=== PATIENT | female | born 1970 | race American Indian/Alaskan Native ===

== ENCOUNTER 2016-11-08 14:57 | Emergency (ER) | payer OTHER ==
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
[2016-11-08 16:21] LABS: Basophils % (Auto) 0.7 % (0.0-1.8); Eosinophils % (Auto) 0.4 % (0.0-4.3); Hematocrit 33.7 % (30.3-42.9); Hemoglobin 10.8 gm/dl (10.1-14.3); Mean Corpuscular HGB Conc 32 % (30-34); Mean Corpuscular Volume 75 fl (79-97); Platelet Count 265 K/mm3 (140-440); Red Blood Count 4.47 M/mm3 (3.65-5.03); Red Cell Distribution Width 18.5 % (13.2-15.2)
[2016-11-08 16:22] LABS: Mean Corpuscular Hemoglobin 24 pg (28-32)
[2016-11-08 16:39] LABS: Anion Gap 18 mmol/L; Blood Urea Nitrogen 12 mg/dL (7-17); Calcium 9.2 mg/dL (8.4-10.2); Carbon Dioxide 20 mmol/L (22-30); Glucose 88 mg/dL (65-100); Potassium 3.8 mmol/L (3.6-5.0); Sodium 136 mmol/L (137-145)
[2016-11-08 16:45] LABS: Creatine Kinase 25 units/L (30-135); Creatine Kinase MB < 1.0 ng/mL (0.0-4.0)
--- NOTE | 2016-11-08 23:22 | XRay Report ---
FINAL REPORT PROCEDURE: PA and lateral chest x-ray TECHNIQUE: PA and lateral chest radiographs were obtained. CPT 95672 HISTORY: Chest pain COMPARISON: No prior studies are available for comparison. FINDINGS: Heart: Normal. Mediastinum/Vessels: Normal. Lungs/Pleural space: Normal. Bony thorax: There is mild lower thoracic scoliosis convex the right apex at T12.. Other: IMPRESSION: Mild lower thoracic scoliosis as described otherwise negative exam.. No evidence of acute cardiac or pulmonary process..
[2016-11-08] MEDS ORDERED: TYLENOL PO ONE (23:28)
[2016-11-08] MEDS ORDERED: ANTIVERT PO ONE (23:28)
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
[2016-11-09 00:15] VITALS: BP 101/62
== END 2016-11-09 00:15 | disposition home or self-care (01) ==
LOC: ED 14:57
DX: R07.9 Chest pain, unspecified (principal); R42 Dizziness and giddiness; J45.909 Unspecified asthma, uncomplicated; F17.200 Nicotine dependence, unspecified, uncomplicated; Z88.0 Allergy status to penicillin
CPT/HCPCS: 36415; 71020; 80048; 82550; 82553; 84484; 85025; 93005; 93010